=== PATIENT | female | born 1970 | race Caucasian/White ===

== ENCOUNTER 2022-02-24 13:34 | Emergency (ER) | payer OTHER, SELFPAY ==
[2022-02-24 13:31] VITALS: BP 164/98; PULSE 113; RESP 20; TEMP 36.5; O2SAT 94
--- NOTE | 2022-02-24 14:19 | ED.LOWEXIN ---
HPI - Extremity Injury (Lower) General Chief Complaint: Extremity Injury, Lower Stated Complaint: RT ANKLE PAIN History of Present Illness HPI Narrative: 51-year-old female transferred in from a care home secondary pain to the right foot. Patient been in the care home for approximately 3 years. She states she initially went there because she had osteomyelitis to the right foot and ankle area. He had an outpatient x-ray obtained and sent the patient to the emergency room. Patient denies any trauma falls. She does have a walker that she uses. She been hobbling on her right foot. The report from the x-ray shows a chronic subtalar collapse and there is no acute fractures on this x-ray report. This was explained to the patient. She really needs an orthopedic boot. Related Data Allergies Allergy/AdvReac Type Severity Reaction Status Date / Time iodine Allergy Rash Verified 02/24/22 13:40 lamotrigine [From Lamictal] Allergy Rash Verified 02/24/22 13:40 Review of Systems Review of Systems: CONSTITUTIONAL: Denies fever, chills, or sweats. EYES: Denies visual changes, redness, or discharge. ENT: Denies rhinorrhea, congestion, sore throat, or otalgia. CARDIOVASCULAR: Denies chest pain, palpitations, or edema. RESPIRATORY: Denies cough or dyspnea. GASTROINTESTINAL: Denies abdominal pain, nausea, vomiting, or diarrhea. GENITOURINARY: Denies dysuria or hematuria. SKIN: Denies rash or itching. MUSCULOSKELETAL: Denies back pain. Pain to the right foot and ankle region NEUROLOGIC: Denies headache, numbness, or weakness. PSYCHIATRIC: Denies anxiety or depression. [facility] Past Medical History Medical History (Updated 02/24/22 @ 14:26 by Liborio Harris DO) Depression Diabetes mellitus type 2 in obese Diabetic neuropathy Gout Morbid obesity Social History Social History (Updated 02/24/22 @ 14:22 by Liborio Harris DO) Smoking status: Former smoker Living arrangements: care home Exam Narrative: APPEARANCE: Well appearing, no distress, well-nourished. Morbidly obese Head normocephalic and atraumatic. EYES: PERRLA/EOMI, conjunctivae very clear. NOSE: Normal with no drainage EARS:TMS clear Georges Parikh, with good light reflex. THROAT: Pharynx clear, no exudate. NECK: Supple. No adenopathy, no masses. RESPIRATORY: Airway patent, respirations nonlabored. Clear to auscultation bilaterally, no rales, rhonchi, wheezing. CARDIOVASCULAR: Regular rate and rhythm without murmurs, rubs, or gallops. ABDOMINAL: Soft, nontender, nondistended, no hepatosplenomegaly Musculoskeletal: Moves all extremities. Strength/ROM intact, No edema, No calf tenderness. Noted to have some nonspecific tenderness to the ankle and midfoot region. No obvious deformity. Good distal pulses. NEURO: Alert. Cranial nerves II through XII intact. Normal gait. Good coordination. Nonfocal examination. SKIN:: Erythematous lesions noted to the distal right leg in the robert region. PSYCHIATRIC: Normal affect/mood, normal interaction Course Vital Signs Vital signs: Vital Signs Temperature 97.7 F 02/24/22 13:31 Pulse Rate 113 H 02/24/22 13:31 Respiratory Rate 20 02/24/22 13:31 Blood Pressure 164/98 H 02/24/22 13:31 Pulse Oximetry 94 02/24/22 13:31 Oxygen Delivery Room Air 02/24/22 13:31 Temperature 97.7 F 02/24/22 13:31 Pulse Rate 113 H 02/24/22 13:31 Respiratory Rate 20 02/24/22 13:31 Blood Pressure 164/98 H 02/24/22 13:31 Pulse Oximetry 94 02/24/22 13:31 Oxygen Delivery Room Air 02/24/22 13:31 MDM - Extremity Injury (Lower) MDM Narrative Medical decision making narrative: X-ray reports consistent with a chronic subtalar collapse and no acute fractures. This was explained to the patient. She needs an order the boot and she already has crutches. Nurse called the care home and they can facilitate getting her an orthopedic boot. She already has a surgeon that she can follow-up with. Discharge Plan Dischar
--- NOTE | 2022-02-24 14:30 | PC.NURSE ---
THis nurse called [facility] to verify that they could obtain a ortho boot if script was written. [facility] staff stated if they have a script this could be done per [facility]. notified Dr. Harris notified
[2022-02-24] MEDS: HYDROcodone/acetaminophen (*CRX) 7.5-325 MG TABLET 1 TAB PO (18:18)
== END 2022-02-24 20:08 ==
LOC: ANHED 14:38
PROVIDERS: Emergency Provider Emergency Medicine; PCP Internal Medicine
DX: M84.474A Pathological fracture, right foot, initial encounter for fracture (principal); E66.01 Morbid (severe) obesity due to excess calories; E11.9 Type 2 diabetes mellitus without complications; Z87.891 Personal history of nicotine dependence; Z68.43 Body mass index [BMI] 50.0-59.9, adult
CPT/HCPCS: 99283; A9270

== ENCOUNTER 2022-09-26 14:39 | Outpatient (CLI) | payer OTHER, SELFPAY ==
--- NOTE | ~2022-09-26 | MR_ITS ---
MRI of the right foot Clinical History: Osteomyelitis Technique: Axial proton-density and proton-density fat-sat images, sagittal T1-weighted and STIR imag es, and coronal T1-weighted and proton-density fat-sat images were acquired. Findings: Exam is significantly degraded by motion artifact on multiple sequences. T1 marrow signal appears intact throughout the visualized forefoot osseous structures. No evidence fo r osteomyelitis. No bone marrow edema, fracture, or periosteal reaction identified in the forefoot. V isualized joint spaces are relatively well-preserved. No advanced degenerative change or erosive ricks ge evident. No joint effusion evident in the forefoot. Flexor and extensor tendons are grossly intact. Plantar fascia grossly unremarkable. Possible mild ed kalia of the intrinsic plantar musculature of the foot. No fluid collection evident. There is questionable signal abnormality, very partially imaged, at the talus and tibiotalar joint re gion. IMPRESSION: No evidence for osteomyelitis in the forefoot. No significant abnormality seen in the forefoot. Multi ple sequences are degraded by motion artifact. Suggestion of very partially imaged abnormal signal at the talus/tibiotalar joint region. Pathology a t the ankle joint cannot be excluded, but is inadequately evaluated given the [id number] and motio n artifact present on this exam. If there is clinical concern for pathology at the ankle, then dedica anca ankle imaging is recommended. Reviewed, dictated and finalized at [facility]. [employer] IMPRESSION: No evidence for osteomyelitis in the forefoot. No significant abnormality seen in the forefoot. Multiple sequences are degraded by motion artifact. Suggestion of very partially imaged abnormal signal at the talus/tibiotalar aleisha nt region. Pathology at the ankle joint cannot be excluded, but is inadequately evaluated given the [id number] and motion artifact present on this exam. If there is clinical concern for pathology at the ankle, then dedicated ankle maninder ging is recommended.
== END 2022-09-26 14:40 | disposition home or self-care (01) ==
PROVIDERS: PCP Internal Medicine; Visit Provider Family Medicine
DX: R93.6 Abnormal findings on diagnostic imaging of limbs (principal)
CPT/HCPCS: 73718